=== PATIENT | female | born 1950 | race Hispanic/Latino ===

== ENCOUNTER → 2017-10-21 | Outpatient (CLI) | payer OTHER, MEDICARE | END | disposition home or self-care (01) | LOC: OIH 16:45 | PROVIDERS: ATTEND Family Medicine | DX: S50.811A Abrasion of right forearm, initial encounter (principal); M25.521 Pain in right elbow; M25.531 Pain in right wrist; M79.89 Other specified soft tissue disorders; J43.9 Emphysema, unspecified; X58.XXXA Exposure to other specified factors, initial encounter; Y93.89 Activity, other specified; Y92.89 Other specified places as the place of occurrence of the external cause; Y99.8 Other external cause status | CPT/HCPCS: 73070; 73090; 73110 ==

== ENCOUNTER → 2018-04-15 | Outpatient (CLI) | payer OTHER, MEDICARE | END | disposition home or self-care (01) | LOC: RAH 11:09 | PROVIDERS: ATTEND Internal Medicine | DX: G90.09 Other idiopathic peripheral autonomic neuropathy (principal) | CPT/HCPCS: 93922 ==

== ENCOUNTER 2018-06-29 10:57 | Emergency (ER) | payer OTHER, MEDICARE ==
[2018-06-29 11:33] LABS: BASOPHILS % (AUTO) 0.3 % (0.0-5.0); EOSINOPHILS % (AUTO) 0.4 % (0.0-8.0); HEMATOCRIT 41.1 % (36-48); LYMPHOCYTES % (AUTO) 32.7 % (21.0-51.0); MEAN CORPUSCULAR HEMOGLOBIN 30.5 pg (27.0-33.0); MEAN CORPUSCULAR HGB CONC 33.9 g/dL (32.0-36.0); MEAN CORPUSCULAR VOLUME 89.9 fL (79-99); MONOCYTES % (AUTO) 5.8 % (3.0-13.0); NEUTROPHILS % (AUTO) 60.8 % (40.0-77.0); PLATELET COUNT (AUTO) 180 K/uL (130-400); RED BLOOD CELL COUNT(AUTO) 4.57 MIL/uL (4.00-5.50)
[2018-06-29 11:41] LABS: CREATININE 0.7 mg/dL (0.5-1.5); POTASSIUM 3.7 mmol/L (3.5-5.1)
[2018-06-29 11:45] LABS: ALBUMIN 3.9 g/dL (3.5-5.0); BILIRUBIN,TOTAL 0.8 mg/dL (0.2-1.0); TOTAL PROTEIN, SERUM 8.5 g/dL (6.0-8.3)
[2018-06-29] MEDS ORDERED: IBUPROFEN 400 MG TABLET ONE (12:31)
[2018-06-29] MEDS ORDERED: BENZONATATE 100 MG CAPSULE PO ONE (12:31)
== END 2018-06-29 13:27 | disposition home or self-care (01) ==
LOC: EDH 10:57
DX: J06.9 Acute upper respiratory infection, unspecified (principal); E11.649 Type 2 diabetes mellitus with hypoglycemia without coma; I10 Essential (primary) hypertension; E78.5 Hyperlipidemia, unspecified; Z90.710 Acquired absence of both cervix and uterus
CPT/HCPCS: 36415; 71046; 80053; 82550; 82948; 84484; 85025; 87804; 93005

== ENCOUNTER 2018-07-16 13:10 | Emergency (ER) | payer OTHER, MEDICARE | END 2018-07-16 15:20 | disposition home or self-care (01) | LOC: EDH 13:10 | DX: S92.352A Displaced fracture of fifth metatarsal bone, left foot, initial encounter for closed fracture (principal); I10 Essential (primary) hypertension; E78.5 Hyperlipidemia, unspecified; E11.9 Type 2 diabetes mellitus without complications; Z90.710 Acquired absence of both cervix and uterus; X58.XXXA Exposure to other specified factors, initial encounter; Y93.89 Activity, other specified; Y92.89 Other specified places as the place of occurrence of the external cause; Y99.8 Other external cause status | CPT/HCPCS: 29515; 73610; 73630 ==

== ENCOUNTER → 2022-05-12 | Outpatient (CLI) | payer MEDICARE | END | disposition home or self-care (01) | LOC: SHCH 09:35 | PROVIDERS: ATTEND Student in an Organized Health Care Education/Training Program | DX: Z48.812 Encounter for surgical aftercare following surgery on the circulatory system (principal); R06.02 Shortness of breath; E11.9 Type 2 diabetes mellitus without complications; E78.5 Hyperlipidemia, unspecified; I10 Essential (primary) hypertension; Z95.1 Presence of aortocoronary bypass graft | CPT/HCPCS: 93306 ==

== ENCOUNTER → 2022-07-20 | Outpatient (CLI) | payer OTHER, MEDICARE ==
[~2022-07-20] MED LIST: REGADENOSON 0.4 MG/5 ML PF SYG IVP SCH
== END | disposition home or self-care (01) ==
LOC: SHCH 09:23
PROVIDERS: ATTEND Student in an Organized Health Care Education/Training Program
DX: R07.9 Chest pain, unspecified (principal)
CPT/HCPCS: 78452; 96374; 93017; J2785; A9500 ×2

== ENCOUNTER → 2023-01-13 | Outpatient (CLI) | payer OTHER, MEDICARE ==
[2023-01-13 12:09] LABS: CHOLESTEROL 144 mg/dL (<200); HDL CHOLESTEROL 39 mg/dL (35-85); LDL DIRECT 91 mg/dL (0-99); TRIGLYCERIDES 83 mg/dL (30-200)
== END | disposition home or self-care (01) ==
LOC: LAB 08:44
PROVIDERS: ATTEND Student in an Organized Health Care Education/Training Program
DX: E78.2 Mixed hyperlipidemia (principal)
CPT/HCPCS: 36415; 80061

== ENCOUNTER → 2023-04-20 | Outpatient (CLI) | payer OTHER, MEDICARE ==
[2023-04-20 12:15] LABS: BASOPHILS # (AUTO) 0.02 K/uL (0.00-0.20); BASOPHILS % (AUTO) 0.3 % (0.0-5.0); EOSINOPHILS # (AUTO) 0.03 K/uL (0.00-0.70); EOSINOPHILS % (AUTO) 0.5 % (0.0-8.0); IMMATURE GRANULOCYTE ABSOLUTE 0.02 K/uL (0-1); LYMPHOCYTES # (AUTO) 1.8 K/uL (1.0-4.8); LYMPHOCYTES % (AUTO) 30.7 % (21.0-51.0); MEAN CORPUSCULAR HEMOGLOBIN 27.5 pg (27.0-33.0); MEAN CORPUSCULAR HGB CONC 31.9 g/dL (32.0-36.0); MEAN CORPUSCULAR VOLUME 86.2 fL (79-99); MONOCYTES # (AUTO) 0.4 K/uL (0.1-1.0); MONOCYTES % (AUTO) 6.2 % (3.0-13.0); NEUTROPHILS # (AUTO) 3.7 K/uL (1.8-7.7); PLATELET COUNT (AUTO) 220 K/uL (130-400); RED BLOOD CELL COUNT(AUTO) 4.29 MIL/uL (4.00-5.50); RED CELL DISTRIBUTION WIDTH 15.3 % (11.0-15.5)
[2023-04-20 12:21] LABS: CREATININE 0.7 mg/dL (0.5-1.5); POTASSIUM 4.1 mmol/L (3.5-5.1)
[2023-04-20 12:28] LABS: INR < 0.93 (0.85-1.15); PROTHROMBIN TIME 10.6 SEC (9.6-11.6)
== END | disposition home or self-care (01) ==
LOC: LAB 09:40
PROVIDERS: ATTEND Student in an Organized Health Care Education/Training Program
DX: I35.1 Nonrheumatic aortic (valve) insufficiency (principal); I73.9 Peripheral vascular disease, unspecified; R07.9 Chest pain, unspecified; R60.9 Edema, unspecified; Z95.1 Presence of aortocoronary bypass graft
CPT/HCPCS: 36415; 80048; 85025; 85610; 85730

== ENCOUNTER → 2023-05-13 | Outpatient (CLI) | payer OTHER, MEDICARE ==
[~2023-05-13] MED LIST changes: +IOHEXOL 350 MG/ML 100ML INFUS..BTL IV ONE; +METOPROLOL TARTRATE 1 MG/ML 5ML VIAL IV ONE; -REGADENOSON 0.4 MG/5 ML PF SYG IVP SCH
== END | disposition home or self-care (01) ==
LOC: RAH 08:27
PROVIDERS: ATTEND Student in an Organized Health Care Education/Training Program
DX: R07.9 Chest pain, unspecified (principal)
CPT/HCPCS: 75574; J3490 ×2; Q9967

== ENCOUNTER → 2023-07-14 | Outpatient (CLI) | payer OTHER, MEDICARE ==
[2023-07-14] MEDS: REGADENOSON 0.4 MG/5 ML PF SYG IVP SCH (12:14)
== END | disposition home or self-care (01) ==
LOC: RAH 08:12
PROVIDERS: ATTEND Student in an Organized Health Care Education/Training Program
DX: R07.9 Chest pain, unspecified (principal); R06.09 Other forms of dyspnea; R53.83 Other fatigue; I35.1 Nonrheumatic aortic (valve) insufficiency; I10 Essential (primary) hypertension; E78.2 Mixed hyperlipidemia; I73.9 Peripheral vascular disease, unspecified; E11.8 Type 2 diabetes mellitus with unspecified complications; R60.9 Edema, unspecified; E11.51 Type 2 diabetes mellitus with diabetic peripheral angiopathy without gangrene; Z79.84 Long term (current) use of oral hypoglycemic drugs; Z79.82 Long term (current) use of aspirin; Z79.899 Other long term (current) drug therapy
CPT/HCPCS: 78452; 93017; J2785; A9500 ×2; 96374

== ENCOUNTER → 2023-12-30 | Outpatient (CLI) | payer OTHER, MEDICARE | END | disposition home or self-care (01) | LOC: SHCH 10:56 | PROVIDERS: ATTEND Student in an Organized Health Care Education/Training Program | DX: I87.2 Venous insufficiency (chronic) (peripheral) (principal) | CPT/HCPCS: 93970 ==

== ENCOUNTER → 2024-06-21 | Outpatient (CLI) | payer OTHER, MEDICARE ==
[2024-06-21 12:34] LABS: CHOLESTEROL 160 mg/dL (<200); HDL CHOLESTEROL 38 mg/dL (35-85); LDL DIRECT 117 mg/dL (0-99); TRIGLYCERIDES 96 mg/dL (30-200)
== END | disposition home or self-care (01) ==
LOC: LAB 10:08
PROVIDERS: ATTEND Student in an Organized Health Care Education/Training Program
DX: E78.2 Mixed hyperlipidemia (principal)
CPT/HCPCS: 36415; 80061

== ENCOUNTER → 2024-10-17 | Outpatient (CLI) | payer OTHER, MEDICAID ==
--- NOTE | 2024-10-17 10:07 | HMCIMG ---
MAMMO SCREENING BILATERAL HISTORY: Screening mammogram. COMPARISON: 09/11/2001 TECHNIQUE: Bilateral screening mammogram with CAD was performed with craniocaudal and mediolateral oblique projections. FINDINGS: The breasts are heterogeneous dense, which may obscure small masses. Extensive vascular calcifications are seen bilateral dystrophic calcifications are also seen There is no evidence of a dominant mass, or suspicious microcalcification. There is no evidence of nipple retraction or skin thickening. IMPRESSION: 1. Stable mammogram. Patient was entered into a reminder system with a target due date for their next mammogram. BI-RADS: CATEGORY 2: BENIGN FINDINGS Recommend monthly self breast exam as well as annual clinical examination. A negative x-ray should not delay biopsy if a dominant or clinically suspicious mass is present, since 8-10% of cancers are not identified by mammography. Dense breasts particularly, may obscure an underlying neoplasm. Some of these may be detected clinically and therefore, clinical examination is an essential part of breast evaluation.
== END | disposition home or self-care (01) ==
LOC: RAH 09:26
PROVIDERS: ATTEND Internal Medicine
DX: Z12.31 Encounter for screening mammogram for malignant neoplasm of breast (principal); R92.333 Mammographic heterogeneous density, bilateral breasts
CPT/HCPCS: 77067

== ENCOUNTER 2024-12-30 22:04 | Inpatient (IN) | payer OTHER, MEDICAID ==
[~2024-12-30] VITALS: Ht 157.5 cm; Wt 557.9 kg
--- NOTE | 2024-12-30 23:35 | NUR ---
ULTRASOUND AND FAMILY AT BEDSIDE.
[2024-12-30 23:45] LABS: IMMATURE GRANULOCYTE ABSOLUTE 0.01 K/uL (0-1); NUCLEATED RED BLOOD CELLS 0.0 % (0.0-0.19); PLATELET COUNT (AUTO) 186 K/uL (130-400); RED BLOOD CELL COUNT(AUTO) 3.88 MIL/uL (4.00-5.50); RED CELL DISTRIBUTION WIDTH 13.9 % (11.0-15.5); WHITE BLOOD COUNT (AUTO) 5.8 K/uL (4.8-10.8)
[2024-12-30 23:53] LABS: CREATININE 0.6 mg/dL (0.5-1.0); GLOMERULAR FILTR. RATE CALC 94.0 mL/min (>90); GLUCOSE,RANDOM 171.0 mg/dL (70-105); SODIUM SERUM 142.0 mmol/L (136-145); UREA NITROGEN, BLOOD 15.0 mg/dL (7-18)
[2024-12-30 23:57] LABS: CREATINE KINASE, TOTAL 40.0 U/L (21-232)
[2024-12-31] VITALS (8 sets, daily range): BP systolic 140–157; BP diastolic 52–63; PULSE 57–74; RESP 16–18; TEMP 97.6–98.4; O2SAT 98–99
--- NOTE | 2024-12-31 00:03 | ERN ---
General Chief Complaint: Lower Extremity Pain/Injury Stated Complaint: LEFT LEG PAIN Time Seen by MD: 22:51 History of Present Illness Initial Comments 74-year-old female with diabetes coronary artery disease, status post CABG, had a intravascular stent placed in her left lower extremity approximately a week ago and ever since then has been noticing increasing pain up and down her entire left leg and thigh. She comes in for evaluation. Allergies: Coded Allergies: No Known Allergies (Verified Allergy, Unknown, 07/17/22) Past Medical History Past Medical History: CAD, Diabetes-Type II, High Cholesterol, Hypertension, Other Medical History Other: PVD Past Surgical History: CABG Constitutional: (-) chills, (-) diaphoresis, (-) fever, (-) malaise, (-) weakness, (-) other documentation EENTM: (-) eye pain, (-) blurred vision, (-) tearing, (-) double vision, (-) ear pain, (-) ear discharge, (-) nose pain, (-) nose congestion, (-) throat pain, (-) Throat swelling, (-) mouth pain, (-) tooth pain, (-) mouth swelling, (-) other documentation Respiratory: (-) cough, (-) orthopnea, (-) short of breath, (-) stridor, (-) wheezing, (-) other documentation Cardiovascular: (-) chest pain, (-) edema, (-) palpitations, (-) syncope, (-) dyspnea on exertion, (-) other documentation Gastrointestinal/Abdominal: (-) nausea, (-) vomiting, (-) diarrhea, (-) abdominal pain, (-) abdominal distention, (-) constipation, (-) rectal bleeding, (-) dark stool/melena, (-) other documentation Genitourinary: (-) vaginal discharge, (-) vaginal bleeding, (-) dysuria, (-) frequency, (-) hematuria, (-) pain, (-) other documentation Musculoskeletal: (-) Neck pain, (-) back pain, (-) Flank Pain, (-) joint pain, (-) joint swelling, (-) muscle pain, (-) muscle stiffness, (-) gout, (-) other documentation Skin: (-) laceration, (-) contusion, (-) abrasion, (-) abscess, (-) rash, (-) change in color, (-) change in hair, (-) change in nails, (-) diaphoresis, (-) dryness, (-) other documentation Neuro: (-) altered mental status, (-) headache, (-) syncope, (-) paralysis, (-) numbness, (-) seizure, (-) pre-existing deficit, (-) tremors, (-) weakness, (-) dizziness, (-) slurred speech, (-) vertigo, (-) other documentation Physical Exam General Appearance: (+) mild distress Orientation: (+) alert, (+) oriented x 3 Head/Face Trauma: No Eye: bilateral eye normal inspection, bilateral eye PERRL, bilateral eye EOMI Ear, Nose, Throat: (+) hearing grossly normal, (+) normal ENT inspection, (+) moist mucous membraine Neck: (+) normal inspection, (+) supple, (+) full range of motion Respiratory: (+) chest non-tender, (+) lungs clear, (+) well ventilated Heart: (+) regular, (+) no gallop Vascular: (+) no edema Vascular Comment Left Pulses nonpalpable right lower extremity dorsalis pedis and posterior tibialis. Pulses are also weak on the right lower extremity. The left lower extremity does feel cooler than the right. And it is exquisitely tender. Gastrointestinal: (+) soft, (+) non-tender, (+) bowel sound present Extremities: (+) slow capillary refill Extremities Comment Left thigh and calf extremely tender. Decreased pulses left side and left foot is cool. Results Laboratory and Microbiology Lab and Micro Result Laboratory Tests Test 12/30/24 23:26 White Blood Count 5.8 K/uL (4.8-10.8) Red Blood Count 3.88 MIL/uL (4.00-5.50) L Hemoglobin 11.4 g/dL (12.0-16.0) L Hematocrit 34.8 % (36-48) L Mean Corpuscular Volume 89.7 fL (79-99) Mean Corpuscular Hemoglobin 29.4 pg (27.0-33.0) Mean Corpuscular Hemoglobin Concent 32.8 g/dL (32.0-36.0) Red Cell Distribution Width 13.9 % (11.0-15.5) Platelet Count 186 K/uL (130-400) Mean Platelet Volume 11.0 fL (7.5-10.5) H Immature Granulocyte % (Auto) 0.2 % (0-1) Neutrophils (%) (Auto) 51.4 % (40.0-77.0) Lymphocytes (%) (Auto) 39.5 % (21.0-51.0) Monocytes (%) (Auto) 7.7 % (3.0-13.0) Eosinophils (%) (Auto) 0.7 % (0.0-8.0) Basophils (%) (Auto) 0.5 % (0.0-5.0) Neutrophils # (Auto) 3.0 K/uL (1.8-7.7) Lymphocytes # (Auto) 2.3 K/uL (1.0-4.8) Monocytes # (Auto) 0.5 K/uL (0.1-1.0) Eosinophils # (Auto) 0.04 K/uL (0.00-0.70) Basophils # (Auto) 0.03 K/uL (0.00-0.20) Absolute Immature Granulocyte (auto 0.01 K/uL (0-1) Nucleated Red Blood Cells 0.0 % (0.0-0.19) Sodium Level 142 mmol/L (136-145) Potassium Level 4.1 mmol/L (3.5-5.1) Chloride Level 108 mmol/L (101-111) Carbon Dioxide Level 31 mmol/L (21-32) Blood Urea Nitrogen 15 mg/dL (7-18) Creatinine 0.6 mg/dL (0.5-1.0) Glomerular Filtration Rate Calc 94 mL/min (>90) Random Glucose 171 mg/dL (70-105) H Total Calcium 8.6 mg/dL (8.5-10.1) Total Creatine Kinase 40 U/L (21-232) MDM MDM: Differential diagnosis: Clotted stents, other causes of decreased bilateral lower extremity arterial flow, DVT, rhabdomyolysis, Rationale: Tests considered and ordered secondary to shared decision making include: Previous outside records reviewed: Old ER visits. Risk of complication and/or morbidity or mortality of patient management: None Medications-Per medication reconciliation Need for hospitalization: Patient does meet criteria for hospitalization. Need for emergency major/minor surgery: No There are no social concerns with this patient. Prescription drug management Prescriptions will include symptomatic care Patient's prior external medical records from other ER visits were reviewed by me as indicated. Prior testing and results from previous visits were reviewed. Prior tests were taken into account with medical decision making and resource utilization, independent historian/historians were used to obtain complete medical history. I independently interpreted the test that were performed, results were reviewed by me and considered findings on radiology if ordered. Patient's Doppler arterial studies shows good blood flow up and down the right thigh right calf right foot left thigh has good blood flow there is a 50% stenosis at the popliteal artery and then a dramatic drop off in blood flow down to the patient's foot with almost no flow seen in the posterior tibial artery very little flow in the dorsalis pedis in the anterior tibial artery. I discussed the patient with the vascular surgeon on-call and he would like to admit the patient and start a heparin drip. ED Course Orders Procedure Category Date Status Time Cbc With Differential LAB 12/30/24 In Process 23:15 Basic Metabolic Panel LAB 12/30/24 Complete 23:15 Us Arterial Bilat Low US 12/30/24 Taken Ext Dupl 23:15 Creatine Kinase, Total LAB 12/30/24 Complete 23:15 12 Lead Ekg Tracing- EKG 12/30/24 Logged Technical 23:15 B-Type Natriuretic LAB 12/30/24 In Process Peptide 23:15 Troponin I High LAB 12/30/24 In Process Sensitivity 23:15 Acetaminophen With PHA 12/31/24 Logged Codeine (Tylenol-Code 00:30 Current Medications Medications (Trade) Dose Ordered Sig/Francis Route PRN Reason Start Time Stop Time Status Last Admin Dose Admin Acetaminophen/ Codeine Phosphate (TYLenol-coDEINE TAB) 1 tab ONCE ONCE PO 12/31/24 00:30 12/31/24 00:31 UNV Vital Signs Date Time Temp Pulse Resp B/P (MAP) Pulse Ox O2 Delivery O2 Flow Rate FiO2 12/31/24 00:17 64 18 200/71 100 Room Air* 0 21 12/30/24 22:06 97.0 64 16 228/76 99 Room Air DX & DISP Disposition: Inpatient Departure Impression: Primary Impression: Arterial stent thrombosis Condition: Stable Referrals: SHANNON LAY MD (PCP) MICHELE WHITESIDE MD Dec 31, 2024 00:03
--- NOTE | 2024-12-31 00:47 | HMCIMG ---
EXAMINATION: Bilateral Lower Extremity Arterial Duplex. COMPARISON: None. HISTORY: Right lower extremity cold and painful. FINDINGS: Right Lower Extremity: STUDENT DEVELOPMENT DEAN measures 148 cm/sec, Biphasic. SFA proximal measures 67 cm/sec, biphasic. SFA mid measures 70 cm/sec, biphasic. SFA distal measures 83 cm/sec, biphasic. Popliteal artery proximal measures 108 cm/sec, biphasic. Popliteal artery distal measures 61 cm/sec, biphasic. PRODUCTION CONTROL COORDINATING CLERK measures 15 cm/sec, monophasic. EDWARD distal measures 43 cm/sec, biphasic. DPA measures 67 cm/sec, biphasic. Left Lower Extremity: STUDENT DEVELOPMENT DEAN measures 134 cm/sec, triphasic. SFA proximal measures 82 cm/sec, triphasic. SFA mid measures 51 cm/sec, triphasic. SFA distal measures 34 cm/sec, monophasic. Popliteal artery proximal measures 161 cm/sec, biphasic, consistent with 20% to 49% stenosis. Popliteal artery distal measures 45 cm/sec, monophasic. No flow seen in the PRODUCTION CONTROL COORDINATING CLERK. EDWARD distal measures 15 cm/sec, monophasic. DPA measures 11 cm/sec, monophasic. IMPRESSION: Diffuse peripheral arterial disease bilaterally. No flow is detected within the left posterior tibial artery. High resistance monophasic waveforms within the right posterior tibial artery and left distal superficial femoral artery, popliteal artery, anterior tibial artery, and dorsalis pedis artery. 20% to 49% in the left popliteal artery. /[place]
--- NOTE | 2024-12-31 02:26 | NUR ---
PATIENT SLEEPING, NO DISTRESS NOTED.
[2024-12-31] MEDS ORDERED: LISI40TA15 PO (04:24)
[2024-12-31] MEDS ORDERED: ATOR-2 PO (04:26)
[2024-12-31] MEDS ORDERED: ACET-2079 PO (04:27)
[2024-12-31] MEDS ORDERED: CLOP75TA32 PO (04:29)
[2024-12-31 08:02] LABS: IMMATURE GRANULOCYTE ABSOLUTE 0.01 K/uL (0-1); NUCLEATED RED BLOOD CELLS 0.0 % (0.0-0.19); PLATELET COUNT (AUTO) 164 K/uL (130-400); RED BLOOD CELL COUNT(AUTO) 4.03 MIL/uL (4.00-5.50); RED CELL DISTRIBUTION WIDTH 13.9 % (11.0-15.5); WHITE BLOOD COUNT (AUTO) 5.7 K/uL (4.8-10.8)
[2024-12-31 08:14] LABS: INR 1.04 (0.85-1.15)
[2024-12-31 08:15] LABS: CREATININE 0.6 mg/dL (0.5-1.0); GLOMERULAR FILTR. RATE CALC 94.0 mL/min (>90); GLUCOSE,RANDOM 181.0 mg/dL (70-105); PHOSPHORUS 3.5 mg/dL (2.5-4.9); SODIUM SERUM 142.0 mmol/L (136-145); UREA NITROGEN, BLOOD 15.0 mg/dL (7-18)
[2024-12-31] MEDS: LISINOPRIL 40 MG TABLET PO SCH (09:18)
--- NOTE | 2024-12-31 11:39 | CONS ---
Pleasant 74-year-old female with diabetes and history of coronary bypass underwent a stent procedure on her left lower extremity at the [facility] last week. She says she has had persistent pain just below the inguinal crease since then and she also experienced some pain in the calf which has improved. She presented here with intense pain, now feels there has been substantial improvement. Doppler studies demonstrate flow to the left foot and I appreciate a 1-2+ left anterior tibial pulse as well as a popliteal pulse and a two-3+ left femoral pulse. Patient has tenderness over the adductor longus just below its insertion at the left groin. Past history, as noted, is remarkable for previous coronary bypass and diabetes mellitus. Patient also has peripheral arterial disease with abnormal Dopplers during this visit. Review of systems is negative for syncope or presyncope, chest pain or chest pressure, dyspnea or orthopnea, nausea or vomiting, dysuria or urinary hesitancy, visual changes, auditory changes, diaphoresis or rash, but positive for pain primarily just below the left inguinal ligament and previously had pain in the calf as well. Physical exam shows a calm appropriate patient with no obvious neurologic deficits with normal neck veins, normal carotid volume, no rales or rhonchi, nonlabored respiration, regular rhythm and normal S1 and S2, no S3 or murmur, nontender abdomen, normal bowel sounds, no abdominal distention. Left anterior tibial pulses one to 2+ and left popliteal pulse is 2 +in left femoral pulse is 2 to 3+. There is hyperpigmentation over the calf and wilson on the left. The patient has exquisite tenderness over the proximal end of the adductor longus on the left side. Impression and plan: Foot is warm with normal color apart from hyperpigmentation, and I palpate a pedal pulse. I do not think there is a thrombotic occlusion in the left lower extremity, unless the posterior tibial may have been the previous target vessel. I do not think the pain is from vascular occlusion, but rather from pain in the left adductor longus muscle primarily. I do not know what account for the discomfort below the knee. That pain seems to be improved. Dr. Haney will review the situation when he returns tomorrow. Patient History: Unknown MOTHER FATHER BROTHER BROTHER BROTHER BROTHER SISTER Vitals/Labs Vital Signs Date Time Temp Pulse Resp B/P (MAP) Pulse Ox O2 Delivery O2 Flow Rate FiO2 8/3/25 09:41 98 Room Air* 0 21 12/31/24 08:02 97.5 74 18 142/57 Laboratory Tests 12/30/24 23:26 12/31/24 07:41 Allergies: Coded Allergies: No Known Allergies (Verified Allergy, Unknown, 07/17/22) Medications Current Medications Acetaminophen/ Codeine Phosphate 1 tab ONCE ONCE PO Last administered on 12/31/24at 00:57; Start 12/31/24 at 00:30; Stop 12/31/24 at 00:31; Status DC Heparin Sodium (Porcine) *calculation based on ACTUAL B... AD PRN IV; Start 12/31/24 at 01:30; Stop 01/30/25 at 01:29 Heparin Sodium/ Dextrose 250 ml @ 0 mls/hr Q6H IV Last administered on 12/31/24at 01:10; Start 12/31/24 at 01:30; Stop 01/30/25 at 01:29 Heparin Sodium (Porcine) 6,000 unit ONCE ONCE IV Last administered on 12/31/24at 00:58; Start 12/31/24 at 00:30; Stop 12/31/24 at 00:32; Status DC Hydromorphone HCl 0.5 mg Q4H PRN IVP Last administered on 12/31/24at 04:12; Start 12/31/24 at 00:30; Stop 01/05/25 at 00:29 Ondansetron HCl 4 mg Q6H PRN IVP Last administered on 12/31/24at 04:12; Start 12/31/24 at 00:30; Stop 01/30/25 at 00:29 Hydralazine HCl 10 mg Q4H PRN IV Last administered on 12/31/24at 04:46; Start 12/31/24 at 05:00; Stop 01/30/25 at 04:59 Acetaminophen/ Codeine Phosphate 1 tab TIDP PRN PO; Start 12/31/24 at 04:30; Stop 01/30/25 at 04:29 Lisinopril 40 mg DAILY PO Last administered on 12/31/24at 09:18; Start 12/31/24 at 09:00; Stop 01/30/25 at 08:59 Atorvastatin Calcium 80 mg DAILY PO Last administered on 12/31/24at 09:17; Start 12/31/24 at 09:00; Stop 01/30/25 at 08:59 Clopidogrel Bisulfate 75 mg DAILY PO Last administered on 12/31/24at 09:17; Start 12/31/24 at 09:00; Stop 01/30/25 at 08:59 MARIA EUGENIA MALAGON MD Dec 31, 2024 11:39
--- NOTE | 2024-12-31 12:54 | EKG ---
[facility] Test Date: 2024-12-30 Test Time: 23:28:19 Pat Name: JAMEE BURKS Department: [facility] Room: 203 1 Gender: F Roofer Metal: 0991 : 1950 Requested By: MICHELE WHITESIDE Order Number: [id number] Reading MD: Javier Toney Measurements Intervals [place] Rate: 70 P: 34 AK: 194 QRS: 11 QRSD: 78 T: 36 QT: 408 QTc: 429 Interpretive Statements Sinus rhythm Atrial premature complexes in couplets Compared to ECG 10/22/2018 19:53:06 Atrial premature complex(es) now present ST (T wave) deviation no longer present Electronically Signed On 01-01-2025 19:15:08 CDT by Javier Toney Please click the below link to view image of tracing.
--- NOTE | 2024-12-31 20:02 | NUR ---
D/C PLAN CM spoke to patient and daughter Gema at bedside regarding d/c planning. Patient lives with son. Reports he has a provider about 15 hrs/week. Patient has a walker at home. Plan for now is to return to same setting. CM to f/u. Addendum: 12/31/24 at 2003 by KASHMIR DUNN CM Amended: Links added.
[2025-01-01] VITALS (11 sets, daily range): BP systolic 121–175; BP diastolic 48–71; PULSE 53–61; RESP 18; TEMP 97.8–98.6; O2SAT 98
--- NOTE | 2025-01-01 01:49 | HP ---
ADMITTING HISTORY AND PHYSICAL CHIEF COMPLAINT: Left leg pain. HISTORY OF PRESENT ILLNESS: This is a 74-year-old female with history of coronary artery disease status post CABG and the patient has peripheral vascular disease. The patient has recent stent placement in the left lower extremity. The patient is noticing increasing pain in the leg. The patient was admitted at this time for left leg ischemia for further workup and evaluation. The patient was followed by the [facility]. The patient denies any chest pain or shortness of breath at this time. PAST MEDICAL HISTORY: Significant for hypertension, diabetes mellitus, coronary artery disease and peripheral vascular disease. PAST SURGICAL HISTORY: Significant for CABG and stent placement for peripheral vascular disease. ALLERGIES: No known drug allergies. MEDICATIONS: The patient takes lisinopril, atorvastatin and Plavix at home. SOCIAL HISTORY: Denies history of smoking, alcohol or substance abuse. FAMILY HISTORY: Noncontributory. REVIEW OF SYSTEMS: HEENT: Negative. CARDIOVASCULAR: Denies chest pain. RESPIRATORY: Denies shortness of breath. GASTROINTESTINAL: Nausea. EXTREMITIES: Left leg pain. PHYSICAL EXAMINATION: GENERAL: The patient is awake, alert and oriented to person, place and time. VITAL SIGNS: Significant for blood pressure is 130/60, pulse 60, respiratory rate is 14. LUNGS: Mostly decreased breath sounds at bases. HEART: Regular rate and rhythm. ABDOMEN: Soft and nontender. EXTREMITIES: Left foot has a decreased dorsalis pedis. The patient's left leg appears to be somewhat cold to touch. ASSESSMENT AND PLAN: Peripheral artery stenosis, left posterior tibial artery stenosis. The patient was started on heparin drip. The patient is getting a Cardiology consultation, vascular consultation at this time. Diabetes mellitus, the patient is on insulin. Hypertension is stable. Coronary artery disease is stable. The patient's care will be transferred to Dr. Farrar. TID: [id number] RECEIPT: [id number]
[2025-01-01 02:19] LABS: IMMATURE GRANULOCYTE ABSOLUTE 0.01 K/uL (0-1); NUCLEATED RED BLOOD CELLS 0.0 % (0.0-0.19); PLATELET COUNT (AUTO) 162 K/uL (130-400); RED BLOOD CELL COUNT(AUTO) 3.55 MIL/uL (4.00-5.50); RED CELL DISTRIBUTION WIDTH 13.9 % (11.0-15.5); WHITE BLOOD COUNT (AUTO) 5.5 K/uL (4.8-10.8)
[2025-01-01 02:29] LABS: INR 1.03 (0.85-1.15)
[2025-01-01 08:25] LABS: CREATININE 0.6 mg/dL (0.5-1.0); GLOMERULAR FILTR. RATE CALC 94.0 mL/min (>90); GLUCOSE,RANDOM 139.0 mg/dL (70-105); SODIUM SERUM 141.0 mmol/L (136-145); UREA NITROGEN, BLOOD 15.0 mg/dL (7-18)
[2025-01-01 08:30] LABS: INR 1.03 (0.85-1.15)
--- NOTE | 2025-01-01 09:15 | PN ---
[facility] CARDIOLOGY PROGRESS NOTE Date Patient Seen: Jan 01, 2025 Time of Visit: 09:11 Problem List: leg pain Interval History: Complains of Pain to left anteromedial thigh. Remains on heparin gtt. Physical Examination: GENERAL: [No acute distress.] HEAD: [Normal with no signs of head trauma.] LUNGS: [Clear breath sounds bilaterally. No wheezes, or rhonchi.] HEART: [Normal rate and rhythm. Normal S1 and S2 without mumurs, gallop or rub.] VASC: [Peripheral pulses +2 bilaterally at the DP, radial..] EXT: [No clubbing, cyanosis or edema.] SKIN: [TTP left anteromedial thigh, with associated redness. no induration.] NEURO: [Awake, alert, and oriented x3. No focal sensory or strength deficits noted.] Laboratory: [ ] Hematology Labs: Test 01/01/25 02:10 Range/Units White Blood Count 5.5 4.8-10.8 K/uL Red Blood Count 3.55 L 4.00-5.50 MIL/uL Hemoglobin 10.5 L 12.0-16.0 g/dL Hematocrit 31.8 L 36-48 % Mean Corpuscular Volume 89.6 79-99 fL Mean Corpuscular Hemoglobin 29.6 27.0-33.0 pg Mean Corpuscular Hemoglobin Concent 33.0 32.0-36.0 g/dL Red Cell Distribution Width 13.9 11.0-15.5 % Platelet Count 162 130-400 K/uL Mean Platelet Volume 11.3 H 7.5-10.5 fL Immature Granulocyte % (Auto) 0.2 0-1 % Neutrophils (%) (Auto) 55.5 40.0-77.0 % Lymphocytes (%) (Auto) 36.5 21.0-51.0 % Monocytes (%) (Auto) 6.7 3.0-13.0 % Eosinophils (%) (Auto) 0.7 0.0-8.0 % Basophils (%) (Auto) 0.4 0.0-5.0 % Neutrophils # (Auto) 3.1 1.8-7.7 K/uL Lymphocytes # (Auto) 2.0 1.0-4.8 K/uL Monocytes # (Auto) 0.4 0.1-1.0 K/uL Eosinophils # (Auto) 0.04 0.00-0.70 K/uL Basophils # (Auto) 0.02 0.00-0.20 K/uL Absolute Immature Granulocyte (auto 0.01 0-1 K/uL Nucleated Red Blood Cells 0.0 0.0-0.19 % Chemistry Labs: Test 01/01/25 08:10 01/01/25 05:46 12/31/24 07:41 12/30/24 23:26 Range/Units Sodium Level 141 136-145 mmol/L Potassium Level 3.9 3.5-5.1 mmol/L Chloride Level 106 101-111 mmol/L Carbon Dioxide Level 30 21-32 mmol/L Blood Urea Nitrogen 15 7-18 mg/dL Creatinine 0.6 0.5-1.0 mg/dL Glomerular Filtration Rate Calc 94 >90 mL/min Random Glucose 139 H 70-105 mg/dL Total Calcium 8.2 L 8.5-10.1 mg/dL Troponin I High Sensitivity 166 *H 4-50 ng/L Whole Blood Glucose 120 H 70-110 MG/DL Phosphorus Level 3.5 2.5-4.9 mg/dL Magnesium Level 1.60 L 1.80-2.40 mg/dL Total Creatine Kinase 40 21-232 U/L B-Type Natriuretic Peptide 94 0-100 pg/mL Coagulation Labs: Test 01/01/25 08:10 Range/Units Prothrombin Time 10.9 9.6-11.6 SEC Prothromb Time International Ratio 1.03 0.85-1.15 Activated Partial Thromboplast Time 52.6 #H 26.3-35.5 SEC Diagnostics / Radiology: IMPRESSION: Diffuse peripheral arterial disease bilaterally. No flow is detected within the left posterior tibial artery. High resistance monophasic waveforms within the right posterior tibial artery and left distal superficial femoral artery, popliteal artery, anterior tibial artery, and dorsalis pedis artery. 20% to 49% in the left popliteal artery. /[place] DICTATED BY: LACIE BAUTISTA Jr., MD DATE: 12/31/24 0149 Impression and Plan: Leg pain Venous insufficiency PAD T2DM HTN CAD, SVG to OM1, SVG to R PDA, MOCTEZUMA to LAD (2022) Recent L CIV and EIV venous stenting on 11/20/24 Arterial duplex abnormal, however no evidence of acute limb ischemia or necrosis. No wound. She has a prior invasive angiography with known QUILT STUFFER of L PT Will obtain venous duplex. If no VTE, can discontinue heparin gtt. HELENA REYES DO Jan 01, 2025 09:15
--- NOTE | 2025-01-01 10:55 | PN ---
SUBJECTIVE: The patient has left lower extremity pain that occurs with minimal exertion and at times at rest. She feels it mostly in her left calf. The patient has a history of having had a coronary artery bypass grafting, diabetes mellitus, hypertension and previous placement of venous stent in the left lower extremity. OBJECTIVE: VITAL SIGNS: Shows temperature 98.4, pulse of 53, respirations 18, blood pressure is 121/56, and oxygen saturations are 100%. HEENT: Normocephalic, atraumatic. Extraocular movements intact. HEART: S1, S2, and bradycardic. LUNGS: Unlabored at rest off of oxygen. ABDOMEN: Mild obesity with positive bowel sounds. EXTREMITIES: She has only a left femoral artery pulse in the left lower extremity. I do not detect a popliteal, dorsalis pedis or posterior tibialis artery pulse. Arterial duplex of the left lower extremity revealed monophasic waveforms below the distal SFA. ASSESSMENT AND PLAN: Left lower extremity peripheral vascular disease. Recommend an angiogram of the left lower extremity arteries. The patient should be on antiplatelet therapy and statin therapy. TID: [id number] RECEIPT: [id number]
--- NOTE | 2025-01-01 15:24 | HMCIMG ---
Exam: Ultrasound deep veins left lower extremity. History: Left lower extremity pain Findings: Che scale and color/doppler static images of the deep veins of the left lower extremity were submitted without a comparison exam. There is normal response to compression and augmentation maneuvers throughout the visualized deep veins of the left lower extremity to include the: common femoral vein, superficial femoral vein, popliteal vein, and posterior tibial veins Patent blood flow was detected with color/doppler imaging. No fluid collection or other abnormality is delineated. Impression: There is no left lower extremity deep venous thrombus formation. . /[place]
--- NOTE | 2025-01-01 20:42 | PN ---
SUBJECTIVE: The patient was admitted for assessment and treatment of left lower extremity pain, considered to be related to ischemia. She was started on heparin IV. 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 The patient has had an arterial Doppler ultrasound that shows left posterior tibial artery stenosis. Consultation with Cardiology has been made and also with Cardiovascular Surgery. The patient is currently comfortable in bed, not in distress. OBJECTIVE: GENERAL: Vital signs in the chart. HEENT: Normocephalic, atraumatic. LUNGS: Clear to auscultation. HEART: S1 and S2 are distant. ABDOMEN: Soft and nontender. EXTREMITIES: No clubbing or cyanosis. ASSESSMENT AND PLAN: * Left lower extremity pain. The patient did not have any pedal pulses as per Cardiovascular Surgery. Cardiovascular surgery is recommending an angiogram of the left lower extremity. Cardiology reports no evidence of an acute limb ischemia or necrosis. Venous dopler ultrasound has been recommended and heparin drip should be discontinued if negative for DVT. * Left leg pain. Continue heparin, pending results of test. Follow up with results. * Coronary artery disease. Continue with atorvastatin, Plavix, and lisinopril. * Hypertension, controlled. Continue lisinopril. * Type 2 diabetes, diet controlled. Follow up in the morning with results. DOS: 01/01/2025 TID: [id number] RECEIPT: [id number] MTDD
[2025-01-02 04:06] VITALS: BP 188/72; PULSE 55; RESP 18; TEMP 98.4
[2025-01-02 07:00] VITALS: BP 149/46; PULSE 61; RESP 20; TEMP 97.8
--- NOTE | 2025-01-02 07:08 | PN ---
[facility] CARDIOLOGY PROGRESS NOTE Date Patient Seen: Jan 02, 2025 Time of Visit: 07:06 Problem List: leg pain PVD PAD Interval History: Complains of Pain to left anteromedial thigh. Physical Examination: GENERAL: [No acute distress.] HEAD: [Normal with no signs of head trauma.] LUNGS: [Clear breath sounds bilaterally. No wheezes, or rhonchi.] HEART: [Normal rate and rhythm. Normal S1 and S2 without mumurs, gallop or rub.] VASC: [Peripheral pulses +2 bilaterally at the DP, radial..] EXT: [No clubbing, cyanosis or edema.] SKIN: [TTP left anteromedial thigh, with associated redness. no induration.] NEURO: [Awake, alert, and oriented x3. No focal sensory or strength deficits noted.] Laboratory: [ ] Hematology Labs: Test 01/01/25 02:10 Range/Units White Blood Count 5.5 4.8-10.8 K/uL Red Blood Count 3.55 L 4.00-5.50 MIL/uL Hemoglobin 10.5 L 12.0-16.0 g/dL Hematocrit 31.8 L 36-48 % Mean Corpuscular Volume 89.6 79-99 fL Mean Corpuscular Hemoglobin 29.6 27.0-33.0 pg Mean Corpuscular Hemoglobin Concent 33.0 32.0-36.0 g/dL Red Cell Distribution Width 13.9 11.0-15.5 % Platelet Count 162 130-400 K/uL Mean Platelet Volume 11.3 H 7.5-10.5 fL Immature Granulocyte % (Auto) 0.2 0-1 % Neutrophils (%) (Auto) 55.5 40.0-77.0 % Lymphocytes (%) (Auto) 36.5 21.0-51.0 % Monocytes (%) (Auto) 6.7 3.0-13.0 % Eosinophils (%) (Auto) 0.7 0.0-8.0 % Basophils (%) (Auto) 0.4 0.0-5.0 % Neutrophils # (Auto) 3.1 1.8-7.7 K/uL Lymphocytes # (Auto) 2.0 1.0-4.8 K/uL Monocytes # (Auto) 0.4 0.1-1.0 K/uL Eosinophils # (Auto) 0.04 0.00-0.70 K/uL Basophils # (Auto) 0.02 0.00-0.20 K/uL Absolute Immature Granulocyte (auto 0.01 0-1 K/uL Nucleated Red Blood Cells 0.0 0.0-0.19 % Chemistry Labs: Test 01/02/25 05:10 01/01/25 17:33 01/01/25 08:10 12/31/24 07:41 Range/Units Whole Blood Glucose 127 H 70-110 MG/DL Troponin I High Sensitivity 173 *H 4-50 ng/L Sodium Level 141 136-145 mmol/L Potassium Level 3.9 3.5-5.1 mmol/L Chloride Level 106 101-111 mmol/L Carbon Dioxide Level 30 21-32 mmol/L Blood Urea Nitrogen 15 7-18 mg/dL Creatinine 0.6 0.5-1.0 mg/dL Glomerular Filtration Rate Calc 94 >90 mL/min Random Glucose 139 H 70-105 mg/dL Total Calcium 8.2 L 8.5-10.1 mg/dL Phosphorus Level 3.5 2.5-4.9 mg/dL Magnesium Level 1.60 L 1.80-2.40 mg/dL Coagulation Labs: Test 01/01/25 14:24 01/01/25 08:10 Range/Units Activated Partial Thromboplast Time 51.8 H 26.3-35.5 SEC Prothrombin Time 10.9 9.6-11.6 SEC Prothromb Time International Ratio 1.03 0.85-1.15 Diagnostics / Radiology: Left Lower Extremity: [employer] OFFICER measures 134 cm/sec, triphasic. SFA proximal measures 82 cm/sec, triphasic. SFA mid measures 51 cm/sec, triphasic. SFA distal measures 34 cm/sec, monophasic. Popliteal artery proximal measures 161 cm/sec, biphasic, consistent with 20% to 49% stenosis. Popliteal artery distal measures 45 cm/sec, monophasic. No flow seen in the [employer] MACHINE OPERATOR. EDWARD distal measures 15 cm/sec, monophasic. DPA measures 11 cm/sec, monophasic. Impression and Plan: Leg pain Venous insufficiency, recent L CIV/EIV stenting on 11/20/[address] Haney. Negative venous duplex for VTE PAD, history of invasive angiography with Dr Bon Toney in 2022 showing occlusions of the L EDWARD and [employer]ING MACHINE OPERATOR. T2DM HTN CAD, SVG to OM1, SVG to R PDA, MOCTEZUMA to LAD (2021) No indication for emergent angiography at this time She does have abnormal arterial duplex, and for persistent claudication symptoms, recommend repeat peripheral angiography I discussed case with her primary ground crew chief, Dr Uriel Toney, and she will evaluate the patient tomorrow in [place] office for HELENA MIKE DO Jan 02, 2025 07:08
--- NOTE | 2025-01-02 09:15 | PN ---
TIME: 11 a.m. SUBJECTIVE: The patient is a 74-year-old female who has been having pain and coolness in her left lower extremity for the past several days. She presented to the hospital due to these complaints. PHYSICAL EXAMINATION: NEUROLOGIC: Alert and oriented. No deficits. CARDIAC: S1 and S2, regular rate and rhythm. RESPIRATORY: Clear to auscultation bilaterally. EXTREMITIES: Warm all the way down to the ankle; however, it is a little bit cool to touch on the foot. She has a faint dorsalis pedis pulse compared to the opposite side on the left compared to the right. ASSESSMENT AND PLAN: Overall, this is a 74-year-old female who has peripheral arterial disease. She is pending an official angiogram by Interventional Cardiology. Once this is performed, we will evaluate the angiogram and give final recommendations for vascular surgery intervention. Thank you very much for the consultation. TID: [id number] RECEIPT: [id number]
[2025-01-02 10:17] VITALS: O2SAT 98
[2025-01-02 11:00] VITALS: BP 151/63; PULSE 61; RESP 20; TEMP 97.9
--- NOTE | 2025-01-03 01:17 | PN ---
SUBJECTIVE: The patient had a left lower extremity venous Doppler ultrasound which was negative. The patient continued to have left lower extremity pain, anteromedial thigh. OBJECTIVE: GENERAL: Currently awake, alert, and oriented in person and place, not in distress. VITAL SIGNS: In the chart. HEENT: Normocephalic, atraumatic. LUNGS: Clear to auscultation. HEART: S1 and S2 are distant. ABDOMEN: Soft and nontender. EXTREMITIES: No clubbing or cyanosis. LABORATORY DATA: Glucose 120. Troponin was 173 yesterday. ASSESSMENT AND PLAN: * Left lower extremity pain associated with peripheral arterial disease without any evidence of critical ischemia. The venous Doppler ultrasound was negative. Plan to discharge when cleared by Cardio. * Coronary artery disease, stable. Continue atorvastatin, Plavix, and lisinopril. * Type 2 diabetes, controlled. * Hypertension, controlled. TID: [id number] RECEIPT: [id number]
== END 2025-01-02 13:30 | disposition home or self-care (01) | DRG 301 ==
LOC: EDH 22:04 → EDHIP 12-31 00:29 → 2AH 12-31 06:39
PROVIDERS: ADMIT Family Medicine; ATTEND Family Medicine
DX: E11.51 Type 2 diabetes mellitus with diabetic peripheral angiopathy without gangrene (principal); I70.202 Unspecified atherosclerosis of native arteries of extremities, left leg; I25.10 Atherosclerotic heart disease of native coronary artery without angina pectoris; I10 Essential (primary) hypertension; I87.2 Venous insufficiency (chronic) (peripheral); E78.00 Pure hypercholesterolemia, unspecified; Z79.4 Long term (current) use of insulin; Z95.1 Presence of aortocoronary bypass graft
CPT/HCPCS: 36415; 80048; 82550; 82948; 83735; 83880; 84100; 84484; 85025; 85610; 85730; 93005; 93925; 93971; 99285; G0378; J0360; J1171; J1644; J2405